=== PATIENT | male | born 1965 | race Two or more races ===

== ENCOUNTER 2025-08-08 08:12 | Inpatient (IN) | payer OTHER, SELFPAY ==
[2025-08-06] VITALS (9 sets, daily range): BP systolic 156–187; BP diastolic 84–100; BMI 23.8
[2025-08-06 17:03] LABS: Hematocrit 38.4 % (39.0-52.0); Hemoglobin 12.7 g/dL (13.0-18.0); Mean Corp Hgb Conc. 33.1 g/dL (33.0-37.0); Mean Corpuscular Volume 83.5 fL (80.0-94.0); Nucleated Red Blood Cells % 0 % (-); Platelet Count 234 10^3/uL (130-400); Red Cell Dist. Width 12.9 % (11.5-14.5)
--- NOTE | 2025-08-06 17:13 | ED.GENMED ---
History of Present Illness
<Farrah Frost MD, Resident - Last Filed: 08/06/25 23:06>
General
Chief Complaint: Chest Pain
Source: patient
Exam Limitations: none
Time Seen by Provider: 08/06/25 16:55
Nursing documentation reviewed up to this point in time: agreed with
History of Present Illness
History of Present Illness:
59yo M with hx of HLD, DM, HTN who presents from urgent care with subacute worsening of exertional chest pain.
Pt lives in [place], [place] and was here visiting his sister. He recently moved to the [place], spoke via [employer]. Pt reports that for the last 1 month, has been having discomfort in his upper chest whenever he walks. This happens with both
physical exertion and walking across short flat distances like parking lot. The discomfort resolves when he is at rest. Today, he felt that the discomfort was worse than usual while walking, around 4-5/10. States that it does not radiate to L arm,
is not accompanied by diaphoresis or n/v. Denies any SOB. Pt went to urgent care, where he was given aspirin and EKG was performed; transferred to ED.
The pt denies any prior cardiac hx, no prior surgeries. States that he has a PCP in [place] who has been rx medications for DM, HLD, HTN, but he is unable to report what any of the medications are. States that the list of his meds is left in his
clothes at the urgent care center.
Past History
<Farrah Frost MD, Resident - Last Filed: 08/06/25 23:06>
Past History
ED Past Medical History: HTN, Hypercholesterolemia and NIDDM
ED Past Surgical History: None
Patient has exhibited threatening behavior?: No
Social History
Tobacco: Non-smoker
Alcohol: None
Drug: None
Family History
Family History: Unable to obtain
Review of Systems
<Farrah Frost MD, Resident - Last Filed: 08/06/25 23:06>
Review of Systems
Allergies reviewed?: Yes
All Other Systems: ROS reviewed and negative except as documented in HPI and ROS
Constitutional: Reports no symptoms
EENT: Reports no symptoms
Respiratory: Reports no symptoms
Cardiac: Reports chest pain
ABD/GI: Reports no symptoms
: Reports no symptoms
Musculoskeletal: Reports no symptoms
Skin: Reports no symptoms
Neurological: Reports no symptoms
Psychiatric: Reports no symptoms
Phy Exam
<Farrah Frost MD, Resident - Last Filed: 08/06/25 23:06>
General Physical Exam
General Presentation: well appearing
General age: appears stated age
General Skin: warm and dry
General Habitus: normal
General Mental: alert
Cardiovascular Exam
Cardiovascular Exam: regular rate/rhythm, no edema and normal peripheral pulses
Heart Sounds: normal
Pulmonary Exam
Pulmonary Exam: lungs clear and no respiratory distress
Gastrointestinal Exam
Gastrointestinal Exam: non tender, soft and non distended
Neurological Exam
Neurological Exam: alert, no motor deficits and speech normal
Musculoskeletal Exam
Musculoskeletal Exam: full ROM and no edema
Skin Exam
Skin Exam: normal color
Psychiatric Exam
Psychiatric Exam: normal mood/affect
Scores
<Farrah Frost MD, Resident - Last Filed: 08/06/25 23:06>
Heart Score for Chest Pain Patients
STEMI patient?: No
History: Slightly or Non-Suspicious
ECG: Nonspecific Repolarization (T wave inversions)
Age: >45 - <65 years
Risk Factors: >/= 3 Risk Factors or History of CAD (DM, HTN, HLD )
Troponin: </= Normal Limit
Heart Score for Chest Pain Patients: 4
Heart Score Risk: 20.3% MACE over next 6 weeks
Course
<Farrah Frost MD, Resident - Last Filed: 08/06/25 23:06>
Orders/Labs/Results
Orders:
Orders
08/06/25 Breakfast
1800 calorie (15 carb) Diabetic
At Your Request: Full Participation
Does patient need a safe tray?: Yes
08/06/25 16:50
EKG [Electrocardiogram (*1)] Urgent
Reason for Study: Chest Pain
08/06/25 16:51
EKG- Treatment ONCE
08/06/25 16:52
Complete Blood Count/With Diff Urgent
Comprehensive Metabolic Panel Urgent
PTT Urgent
Prothrombin Time Urgent
Troponin I Urgent
08/06/25 18:48
Admit/Transfer Patient As Directed
Co-Sign Provider:
Level of Care: Observation services
Assign to:: Telemetry
Physician / Group: kong
Diagnosis: chest pain
Reason for Telemetry: Chest Pain syndromes
Date to Stop Telemetry: 08/08/25
Time to Stop Telemetry: 11:00
PRN Pain Medication Management As Directed
May give lesser potent ordered pain med per pt: Yes
preference::
Protocol:: Medication orders for pain may be administered in a
manner that supports deferring to patient preference
when the pt is:
- Requesting an ordered lesser potent pain medication.
Least to most potent pain medications are defined
as: acetaminophen < NSAID < tramadol < opioids
(morphine, oxycodone, hydromorphone).
- Requesting a lesser dose of the same medication IF
ORDERED.
- Requesting a less intrusive route of administration
if both routes are prescribed by the provider (PO <
IV).
08/06/25 18:49
Code Status As Directed
Resuscitation Status: Full Code
08/06/25 20:55
Electrocardiogram (*1) Q3H
Reason for Study: Chest Pain
Comment: at admission and Q3H for total of 3, to be done with each troponin
Dextrose 50%-Water [Dextrose 50% Syringe] 12.5 grams IV [id number] PRN
Glucagon [GlucaGen] 1 mg IM PRN PRN
08/06/25 20:55
CARDIOLOGY CONSULT Routine
Consulting Provider: Paddy Victor
Was physician already notified: Yes
Activity As Directed
Activity Level: As Tolerated
Bedside Glucose Monitoring As Directed
Frequency: AC&HS
Additional Instructions:: Change to q6h if pt on TPN, tube feeding or not eating
INT (Intravenous Needle Therapy) As Directed
Comment: maintain peripheral IV access
Intake/ Output As Directed
Frequency: Per unit guidelines
Vital Signs As Directed
Frequency: q4h
Weight As Directed
Frequency: Daily
DX Deep Vein Thrombosis Video Routine
08/06/25 21:11
Glycohemoglobin (HgbA1c) Routine
Troponin I Q3H
Comment: at admit & Q3H for 3 total including ED draws, obtain ECG with each level
08/06/25 22:00
Atorvastatin [Lipitor] 40 mg PO HS
08/06/25 23:55
Electrocardiogram (*1) Q3H
Reason for Study: Chest Pain
Comment: at admission and Q3H for total of 3, to be done with each troponin
Troponin I Q3H
Comment: at admit & Q3H for 3 total including ED draws, obtain ECG with each level
08/07/25 02:55
Electrocardiogram (*1) Q3H
Reason for Study: Chest Pain
Comment: at admission and Q3H for total of 3, to be done with each troponin
Troponin I Q3H
Comment: at admit & Q3H for 3 total including ED draws, obtain ECG with each level
08/07/25 Breakfast
NPO
Allow oral meds: No
Allow clear liquids: No
Comment: NPO after midnight
Basic Metabolic Panel IN AM
Cardiovascular Evaluation IN AM
Complete Blood Count/With Diff IN AM
08/07/25 07:30
Insulin Aspart Corrective Low [Novolog Flexpen-Low Resistance] See Protocol SC AC
08/07/25 08:00
Aspirin Chewable [Low Strength Aspirin] 81 mg PO DAILY
Pantoprazole [Protonix] 40 mg PO DAILY
08/07/25 18:00
Enoxaparin Sodium [Lovenox] 40 mg SC QPM
08/08/25 11:00
DC Protocol for Telemetry ONCE
Abnormal Lab Results
08/06/25
16:52
RBC 4.60 L 10^6/uL
(4.70-6.10)
Hgb 12.7 L g/dL
(13.0-18.0)
Hct 38.4 L %
(39.0-52.0)
MPV 10.8 H fL
(7.4-10.4)
Absolute Monos (auto) 0.9 H 10^3/uL
(0.1-0.6)
Monocytes % 10.2 H %
(1.7-9.3)
Carbon Dioxide 32 H mmol/L
(22-30)
Glucose 194 H mg/dl
(70-99)
08/06/25 16:52
08/06/25 16:52
Vital Signs
Initial and Last Documented VS:
Initial Vital Signs
Pulse Resp BP Pulse Ox
85 20 169/98 99
08/06/25 16:53 08/06/25 16:53 08/06/25 16:53 08/06/25 16:53
Last Documented Vital Signs
Temp Pulse Resp BP Pulse Ox
98.1 F 66 18 156/89 99
08/06/25 23:03 08/06/25 23:03 08/06/25 23:03 08/06/25 23:03 08/06/25 23:03
<Naida Murdock MD - Last Filed: 08/06/25 18:07>
Orders/Labs/Results
Orders:
Orders
08/06/25 Breakfast
1800 calorie (15 carb) Diabetic
At Your Request: Full Participation
Does patient need a safe tray?: Yes
08/06/25 16:50
EKG [Electrocardiogram (*1)] Urgent
Reason for Study: Chest Pain
08/06/25 16:51
EKG- Treatment ONCE
08/06/25 16:52
Complete Blood Count/With Diff Urgent
Comprehensive Metabolic Panel Urgent
PTT Urgent
Prothrombin Time Urgent
Troponin I Urgent
08/06/25 18:48
Admit/Transfer Patient As Directed
Co-Sign Provider:
Level of Care: Observation services
Assign to:: Telemetry
Physician / Group: kong
Diagnosis: chest pain
Reason for Telemetry: Chest Pain syndromes
Date to Stop Telemetry: 08/08/25
Time to Stop Telemetry: 11:00
PRN Pain Medication Management As Directed
May give lesser potent ordered pain med per pt: Yes
preference::
Protocol:: Medication orders for pain may be administered in a
manner that supports deferring to patient preference
when the pt is:
- Requesting an ordered lesser potent pain medication.
Least to most potent pain medications are defined
as: acetaminophen < NSAID < tramadol < opioids
(morphine, oxycodone, hydromorphone).
- Requesting a lesser dose of the same medication IF
ORDERED.
- Requesting a less intrusive route of administration
if both routes are prescribed by the provider (PO <
IV).
11/18/25 18:49
Code Status As Directed
Resuscitation Status: Full Code
08/06/25 20:55
Electrocardiogram (*1) Q3H
Reason for Study: Chest Pain
Comment: at admission and Q3H for total of 3, to be done with each troponin
Dextrose 50%-Water [Dextrose 50% Syringe] 12.5 grams IV [id number] PRN
Glucagon [GlucaGen] 1 mg IM PRN PRN
08/06/25 20:55
CARDIOLOGY CONSULT Routine
Consulting Provider: Paddy Victor
Was physician already notified: Yes
Activity As Directed
Activity Level: As Tolerated
Bedside Glucose Monitoring As Directed
Frequency: AC&HS
Additional Instructions:: Change to q6h if pt on TPN, tube feeding or not eating
INT (Intravenous Needle Therapy) As Directed
Comment: maintain peripheral IV access
Intake/ Output As Directed
Frequency: Per unit guidelines
Vital Signs As Directed
Frequency: q4h
Weight As Directed
Frequency: Daily
DX Deep Vein Thrombosis Video Routine
08/06/25 21:11
Glycohemoglobin (HgbA1c) Routine
Troponin I Q3H
Comment: at admit & Q3H for 3 total including ED draws, obtain ECG with each level
08/06/25 22:00
Atorvastatin [Lipitor] 40 mg PO HS
08/06/25 23:55
Electrocardiogram (*1) Q3H
Reason for Study: Chest Pain
Comment: at admission and Q3H for total of 3, to be done with each troponin
Troponin I Q3H
Comment: at admit & Q3H for 3 total including ED draws, obtain ECG with each level
08/07/25 02:55
Electrocardiogram (*1) Q3H
Reason for Study: Chest Pain
Comment: at admission and Q3H for total of 3, to be done with each troponin
Troponin I Q3H
Comment: at admit & Q3H for 3 total including ED draws, obtain ECG with each level
08/07/25 Breakfast
NPO
Allow oral meds: No
Allow clear liquids: No
Comment: NPO after midnight
Basic Metabolic Panel IN AM
Cardiovascular Evaluation IN AM
Complete Blood Count/With Diff IN AM
08/07/25 07:30
Insulin Aspart Corrective Low [Novolog Flexpen-Low Resistance] See Protocol SC AC
08/07/25 08:00
Aspirin Chewable [Low Strength Aspirin] 81 mg PO DAILY
Pantoprazole [Protonix] 40 mg PO DAILY
08/07/25 18:00
Enoxaparin Sodium [Lovenox] 40 mg SC QPM
08/08/25 11:00
DC Protocol for Telemetry ONCE
Abnormal Lab Results
08/06/25
16:52
RBC 4.60 L 10^6/uL
(4.70-6.10)
Hgb 12.7 L g/dL
(13.0-18.0)
Hct 38.4 L %
(39.0-52.0)
MPV 10.8 H fL
(7.4-10.4)
Absolute Monos (auto) 0.9 H 10^3/uL
(0.1-0.6)
Monocytes % 10.2 H %
(1.7-9.3)
Carbon Dioxide 32 H mmol/L
(22-30)
Glucose 194 H mg/dl
(70-99)
08/06/25 16:52
08/06/25 16:52
Vital Signs
Initial and Last Documented VS:
Initial Vital Signs
Pulse Resp BP Pulse Ox
85 20 169/98 99
08/06/25 16:53 08/06/25 16:53 08/06/25 16:53 08/06/25 16:53
Last Documented Vital Signs
Temp Pulse Resp BP Pulse Ox
98.1 F 66 18 156/89 99
08/06/25 23:03 08/06/25 23:03 08/06/25 23:03 08/06/25 23:03 08/06/25 23:03
<Farrah Frost MD, Resident - Last Filed: 08/06/25 23:06>
MDM/Problems Addressed
Differential Diagnosis Includes:
ACS (stable angina given CP with exertion only, resolves at rest vs. unstable angina given worsening degree of discomfort & T wave inversions on EKG)
MDM/Problems Addressed:
Plan:
- EKG
- Troponins
- CBC/CMP
- Nitro for sx relief
- Consult cards
Chronic conditions affecting care: DM and HTN
Acute Exacerbation and/or Progression of Chronic Illness:
Pt with cardiovascular dz (underlying HTN, elevated at admission 180/97), likely contributing to ASCVD risk picture in addition to his HLD & DM
<Farrah Frost MD, Resident - Last Filed: 08/06/25 23:06>
*Pulse Oximetry
SaO2: 99
Oxygen Mode of Delivery: Room air
Patient hypoxic: no
*EKG
Interpreted by ED Provider?: Yes
EKG Intrepretation Date: 08/06/25
Interpretation: abnormal
Comparison EKG: no comparison EKG present
Rate: normal
Rhythm: sinus
[place]: normal axis
Interval: normal interval
QRS Pattern: normal QRS
Ischemia: T-wave inversion
*Critical Care Note
Total Time (30-74mins, 75-104mins- exclusive of procedures): Not Applicable
Data Reviewed
Review of Other/Old Records Reveals: Labs
Source: patient
<Farrah Frost MD, Resident - Last Filed: 08/06/25 23:06>
Update Note
Update Note:
Troponin wnl but mildly elevated 0.019, c/f ongoing subclinical ischemic events
Given worsening level of chest discomfort w exertion over 1mo, ASCVD risk factors/comorbidities, and EKG with T-wave inversions, reasonable to admit for further w/u
Cards consulted for eval
Cards planning for PCI/cardiac cath tomorrow am, NPO after midnight
Discussed w pt & family, will admit to floor
ED Attending Note
<Farrah Frost MD, Resident - Last Filed: 08/06/25 23:06>
-
Portions of this chart may have been created with voice recognition software.� Occasional wrong word or��sound alike� substitutions may have occurred due to the inherent limitations of voice recognition software.
<Naida Murdock MD - Last Filed: 08/06/25 18:07>
ED Attending Note
Patient seen and examined by attending physician: Yes
I performed a history and physical exam of patient and discussed management with resident, I reviewed resident's note and agree with documented findings and plan of care.: Yes
ED Attending Note:
Patient appears comfortable. Lungs are clear. Patient states 0 out of 10 pain currently
Discharge Plan
Departure
Patient Disposition: Admit
Date of Disposition: 08/06/25
Time of Disposition: 18:20
Admit to: Med/Surg
Admit to doctor: Kong
Presentation/result/management discussed w/ accepting MD/DO: Hospitalist
Patient with high blood pressure during this ER visit?: Yes
Condition: Good
Covid-19: Not Applicable
Discharge Problem:
ACS (acute coronary syndrome)
Interventions
Interventions:
*Risk Screen - Suicide Last Done: 08/06/25 16:55
*General Assessment Last Done: 08/06/25 16:55
*Neglect/Abuse Screening Last Done: 08/06/25 16:55
*ED- Fall Risk Assessment Last Done: 08/06/25 16:55
*ED COVID-19 Vaccine History Last Done: 08/06/25 16:55
*ED Influenza Vaccine History Last Done: 08/06/25 16:55
*Nursing Disposition Last Done: 08/06/25 20:42
ED- Cardiac Assessment Last Done: 08/06/25 19:19
Discharge Date and Time
Discharge Date/Time: 08/06/25 20:43
[2025-08-06 17:15] LABS: ALT (SGPT) 23 U/L (0-50); AST (SGOT) 21 U/L (17-59); Albumin 4.4 g/dl (3.5-5.0); Alkaline Phosphatase 68 U/L (38-126); Blood Urea Nitrogen 10 mg/dl (9-20); Calcium 9.1 mg/dl (8.4-10.2); Carbon Dioxide 32 mmol/L (22-30); Chloride 98 mmol/L (98-107); Estimated Creatinine Clearance 90 ml/min; Glucose 194 mg/dl (70-99); Potassium 3.9 mmol/L (3.5-5.1); Sodium 137 mmol/L (135-145); Total Protein 7.3 g/dl (6.3-8.2); eGFR > 60.00
[2025-08-06 17:17] LABS: APTT 29.5 Sec (23.4-35.0); INR 1.00; PT 13.5 Sec (11.4-14.6)
[2025-08-06 17:26] LABS: Troponin I 0.019 ng/ml
--- NOTE | 2025-08-06 18:35 | HPS.HSE ---
Addendum entered and electronically signed by Diana German MD 08/06/25 20:04:
This is an addendum to H&P written by Rosamaria Bernal on 08/06/2025. �Patient seen and examined independently with ENERGY AUDITOR.
59-year-old Faroese speaking male past medical history of hyperlipidemia, diabetes, hypertension presenting with exertional chest discomfort in the neck.
Patient lives in [facility] and was visiting his sister. �He recently moved to the . �For the past month he has been having discomfort in his upper chest whenever he walks. �This occurs with physical exertion and walking across short flat
distances like parking lot. �Discomfort relieved with rest. �Today discomfort is worse than usual walking rated 5 out of 10. �Pain does not radiate to his left arm. �No sweating or nausea or vomiting. �No shortness of breath. �He went to urgent care
and was given aspirin EKG was performed.
EKG showed normal sinus rhythm, T wave inversions in V1-V4. �Troponin of 0.019.
Patient with unstable angina/possible NSTEMI. �No chest pain currently. �Trend troponins, continue aspirin and statin. �Check A1c and lipid panel. �Cardiology consulted.
Original Note:
Family Physician
-
Family Physician:
Chief Complaint
-
burning in the throat
History of Present Illness
59yo M with hx of HLD, DM, HTN presented to us with upper chest, throat burning for past 1 week. He feels the symptoms only with exertion and relieved with rest. Patient denied any short of breath. Patient stated the pain is nonradiating.
Patient denied any headache, dizziness or syncope. Patient denied any fever, chills, cough, congestion. Patient denied any abdominal pain, nausea, vomiting or diarrhea. Patient denied dysuria hematuria. Patient is from [facility]. He is
visiting his family here. Pt went to urgent care, where he was given aspirin and EKG was performed; transferred to ED.
Concern for acute coronary syndrome. Admitting for further manage
Medical History
Past Medical History
Past Medical History: Reports Other
Additional Past Medical History:
Hypertension, hyperlipidemia, type 2 diabetes
Past Surgical History: Reports None
Social History
Tobacco: Non-smoker
Alcohol: None
Drug: None
Family History
Family History: Not pertinent
Allergies / Home Medications
Allergies reflects when Allergies were last updated in [facility].
Home Medications with original date entered in [facility]
Allergy/Medication List:
Medications on admission are unable to be verified or confirmed at this time.
Review of Systems
-
Constitutional: Reports No Symptoms
EENT: Reports No Symptoms
Respiratory: Reports No Symptoms
Cardiac: Reports Chest Pain
Abdomen/GI: Reports No Symptoms
: Reports No Symptoms
Musculoskeletal: Reports No Symptoms
Skin: Reports No Symptoms
Neurological: Reports No Symptoms
Endocrine: Reports No Symptoms
Hematologic/Lymphatic: Reports No Symptoms
Psych: Reports No Symptoms
Physical Exam
Vital Signs
Vital Signs
Temp Pulse Resp BP Pulse Ox
98.6 F 82 18 181/100 99
08/06/25 16:57 08/06/25 18:15 08/06/25 18:15 08/06/25 18:00 08/06/25 17:22
Physical Exam
General: Well Developed, Well Nourished and No Apparent Distress
HEENT: NormoCephalic, Moist mucous membranes and Atraumatic
Respiratory: Clear
Cardiac: S1/S2 and Regular Rhythm; No Murmur or Rub
GI: Soft, Non Tender, Non Distended and Normal Bowel Sounds; No Organomegaly
Rectal: Deferred by Provider
Musculoskeletal: No Clubbing, No Cyanosis and No Edema
Skin: No Rash
Neuro: AO x 3 and Nonfocal/grossly intact
Psych: Calm
Laboratory Results
-
08/06/25 16:52
08/06/25 16:52
Laboratory Results
PT 13.5 Sec (11.4-14.6) 08/06/25 16:52
INR 1.00 08/06/25 16:52
APTT 29.5 Sec (23.4-35.0) 08/06/25 16:52
Total Bilirubin 0.3 mg/dl (0.2-1.3) 08/06/25 16:52
AST 21 U/L (17-59) 08/06/25 16:52
ALT 23 U/L (0-50) 08/06/25 16:52
Alkaline Phosphatase 68 U/L (38-126) 08/06/25 16:52
Troponin I 0.019 ng/ml 08/06/25 16:52
Data Reviewed
-
Lab Data: Labs Reviewed by me
Impression/Plan
-
# Exertional chest discomfort concern for ACS
- EKG normal sinus rhythm, ST and T wave abnormality consider anterior ischemia
- Aspirin continue
- Continue to trend Trope
- Plan for cath tomorrow
- Will keep patient n.p.o. after midnight
# Hypertension
- Blood pressure elevated in ER
-ctm
# Type 2 diabetes
- Sliding scale
-hold glimepiride and metformin
# Hyperlipidemia
- Statin continued
# DVT prophylaxis
- Lovenox subcu
# CODE STATUS
- Full code
[2025-08-06 21:25] LABS: Glucose - Point of Care 132 mg/dl (70-99)
--- NOTE | 2025-08-06 21:32 | PTCARENOTE ---
received pt from ED at 2100. pt ambulated from stretcher to bed. pt offers no current complaints. pt made comfortable in bed. call camejo within reach. plan of care ongoing.
[2025-08-06 21:46] LABS: Troponin I < 0.012 ng/ml
[2025-08-06] MEDS: LIPITOR 40 MG PO (22:09)
[2025-08-06 23:59] LABS: Glucose - Point of Care 116 mg/dl (70-99)
[2025-08-07] VITALS (11 sets, daily range): BP systolic 124–185; BP diastolic 82–107; BMI 23.6
[2025-08-07 00:32] LABS: Troponin I < 0.012 ng/ml
--- NOTE | 2025-08-07 03:00 | DOWNTIME ---
There was a [facility] [employer] Downtime on 08/07/2025 from 0100 to 08/07/2025 at 0255. Downtime documentation of patient's care, including medication administrations, has been reconciled in the electronic record per guidelines. Refer to the
patient's paper chart under the miscellaneous tab to see printed paper medication records and downtime forms.
[2025-08-07 06:01] LABS: Glucose - Point of Care 113 mg/dl (70-99)
--- NOTE | 2025-08-07 07:26 | W.PN.HOSP.TC ---
Today's Communication/Plan
-
Cardiac cath today
Assessment / Plan
Assessment / Plan
Physical Exam
General: Well Developed, Well Nourished and No Apparent Distress
HEENT: Normocephalic, Moist mucous membranes and Atraumatic
Respiratory: Clear
Cardiac: S1/S2 and Regular Rhythm; No Murmur or Rub
GI: Soft, Non Tender, Non Distended and Normal Bowel Sounds
Musculoskeletal: No Cyanosis and No Edema
Skin: Warm. Dry.
Neuro: AO x 3 and Nonfocal/grossly intact
Psych: Calm
Assessment/Plan
KAMLESH
59-year-old Sami speaking male past medical history of hyperlipidemia, diabetes mellitus, hypertension presenting with exertional burning sensation in the neck. Patient lives in [facility] and was visiting his sister. He recently moved to
the . For the past month he has been having discomfort (burning sensation) in his upper chest whenever he walks. This occurs with physical exertion and walking across short flat distances like parking lot. Discomfort relieved with rest. Today
discomfort is worse than usual walking rated 5 out of 10. Pain does not radiate to his left arm. No sweating or nausea or vomiting. No shortness of breath and no actual chest pain. He went to urgent care and was given aspirin EKG was performed.
EKG showed normal sinus rhythm, T wave inversions in V1-V4. Troponin of 0.019. Patient with unstable angina/possible NSTEMI. No chest pain currently.
RASHEED
59yo M with hx of HLD, DM, HTN presented to us with upper chest, throat burning for past 1 week. He feels the symptoms only with exertion and relieved with rest. Patient denied any short of breath. Patient stated the pain is nonradiating.
Patient denied any headache, dizziness or syncope. Patient denied any fever, chills, cough, congestion. Patient denied any abdominal pain, nausea, vomiting or diarrhea. Patient denied dysuria hematuria. Patient is from [facility]. He is
visiting his family here. Pt went to urgent care, where he was given aspirin and EKG was performed; transferred to ED.
Concern for acute coronary syndrome. Admitting for further manage
# Exertional chest discomfort concern for ACS
- EKG normal sinus rhythm, ST and T wave abnormality consider anteriorseptal ischemia
- Aspirin continue
- Troponins negative
- Plan for cath on 08/07/25
- NPO for cath
# Hypertension
- Blood pressure elevated in ER
- New medications: Valsartan, HCTZ and Coreg
# Type 2 diabetes mellitus
- Sliding scale
-hold glimepiride and metformin
# Hyperlipidemia
- Statin continued
# DVT prophylaxis
- Lovenox subcu
# CODE STATUS
- Full code
Anticipated Discharge: 24 - 48 hours
Subjective/Interval History
-
Date of Service: August 07, 2025
Patient was seen and examined. He denied any chest pain or burning sensation at rest. No new symptoms or complaints since coming in.
Objective Data
-
Labs:
Laboratory Results
08/07/25
07:04
WBC Pending
Hgb Pending
Hct Pending
Plt Count Pending
Sodium Pending
Potassium Pending
Chloride Pending
Carbon Dioxide Pending
BUN Pending
Creatinine Pending
Glucose Pending
Calcium Pending
Vital Signs:
Vital Signs
Temp Pulse Resp BP Pulse Ox
97.8 F 70 18 151/86 99
08/07/25 03:46 08/07/25 03:46 08/07/25 03:46 08/07/25 03:46 08/07/25 03:46
I&O
08/06/25 08/07/25 08/08/25
06:59 06:59 06:59
Intake Total 240 / 240
Balance 240 / 240
[2025-08-07 07:35] LABS: Hematocrit 40.0 % (39.0-52.0); Hemoglobin 12.7 g/dL (13.0-18.0); Mean Corp Hgb Conc. 31.8 g/dL (33.0-37.0); Mean Corpuscular Volume 86.2 fL (80.0-94.0); Nucleated Red Blood Cells % 0 % (-); Platelet Count 234 10^3/uL (130-400); Red Cell Dist. Width 12.9 % (11.5-14.5)
[2025-08-07] MEDS: LOW STRENGTH ASPIRIN 81 MG PO (07:37)
[2025-08-07] MEDS: PROTONIX 40 MG PO (07:38)
[2025-08-07 08:19] LABS: Blood Urea Nitrogen 10 mg/dl (9-20); Calcium 9.1 mg/dl (8.4-10.2); Carbon Dioxide 30 mmol/L (22-30); Chloride 103 mmol/L (98-107); Estimated Creatinine Clearance 79 ml/min; Glucose 133 mg/dl (70-99); HDL Cholesterol 43 mg/dl; LDL Cholesterol, Calculated 104 mg/dl; Potassium 4.2 mmol/L (3.5-5.1); Sodium 139 mmol/L (135-145); Very Low Density Lipoprotein 32 mg/dl (0-30); eGFR > 60.00
[2025-08-07 08:46] LABS: Glycohemoglobin (HgbA1c) 7.2 % (4.0-5.9)
--- NOTE | 2025-08-07 08:50 | CON.CAR ---
Addendum entered and electronically signed by Will Tan MD 08/07/25 11:35:
I saw and evaluated the patient, and I provided the substantive portion of the medical decision making.
I reviewed and agree with the note by GIOVANA Ya and it accurately reflects our care.
I personally performed the medical decision making of the this encounter and my assessment and plan is below:
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 The last month he has noticed exertional burning in his chest and neck
relieved with rest. It recently happened with as little as walking around [facility]. This prompted him to seek care. He is visiting from [facility]. He reports he is compliant with his medications. No history of GI bleeding or GI ulcer.
On exam, he has a regular rate and rhythm with a normal S1-S2 no murmur rubs gallops were appreciated lungs were clear to auscultation bilaterally abdomen soft nontender nondistended without hepatosplenomegaly normal distal pulses. No lower
extremity SANDY. Alert and oriented x 3 in no apparent distress.
Troponin initially 0.019. This is now normal.
EKG normal sinus rhythm with diffuse nonspecific ST-T wave inversions anteriorly.
Assessment:
Findings concerning for progressive angina: Typical story, happening with very little exertion, and multiple risk factors. Will proceed with cardiac catheterization. Will add beta-saúl. Continue statin and ARB. Monitor blood pressure
response. Check lipid panel. Check echo.
Hypertension: Elevated, adding beta-saúl continue ARB and hydrochlorothiazide. Adjust as needed.
Hyperlipidemia: Intensify his statin, check lipid panel.
Will follow.
Original Note:
Consultation
Consultation Request
Date/Time Consultation Requested: 08/06/252054
Date/Time Consultation Performed: 08/07/2545
Requesting Provider: Rosamaria Bernal
Performing Provider: Zina AKHTAR for Dr. Tan
Reason for Consultation: Chest pain
Medical History
-
Chief Complaint: chest discomfort
History of Present Illness:
59 y/o Uzbek speaking male with HTN, HLD, and DM2 who is here for evaluation of chest discomfort. It is a burning in his upper neck and chest only with exertion and not with rest. There is no SOB. This has been going on for about 1 month. He went
to urgent care, who recommended he come to the ER. EKG here shows anterior ST/T wave changes. First trop was slightly elevated at 0.019. He is CP free at the time of my assessment. There was an issue with the steamer gum candy IPAD, so it was unable to be
used, but we were able to communicate effectively with the translation from his nephew. Then, I confirmed all of this with the steamer gum candy phone with patient as soon as it became available. Therefore, we were able to communicate effectively.
Past Medical History
Past Medical History: HTN, Hypercholesterolemia and NIDDM
Social History
Tobacco: Non-Smoker
Alcohol: None
Drug: None
Family History
Family History: Reviewed & Not Pertinent (denies)
Allergies / Home Medications
Allergy/AdvReac Type Severity Reaction Status Date / Time
No Known Allergies Allergy Verified 08/06/25 18:47
�Medication �Instructions �Recorded �Confirmed �Type
atorvastatin 10 mg tablet 10 mg PO HS High Cholesterol 08/06/25 08/06/25 History
glimepiride 2 mg tablet 2 mg PO DAILY Diabetes 08/06/25 08/06/25 History
metformin 1,000 mg tablet 1,000 mg PO DAILY Diabetes 08/06/25 08/06/25 History
Arbiten Plus- Valsartan 160 mg /HCTZ 12.5 mg PO daily
Review of Systems
-
History Source: Patient, Family (nephew translates) and Other (and chart)
Cardiac: Chest Pain
Physical Exam
Vital Signs
Temp Pulse Resp BP Pulse Ox
98.4 F 74 16 161/97 99
08/07/25 07:34 08/07/25 07:34 08/07/25 07:34 08/07/25 07:34 08/07/25 07:34
Lab Results
08/07/25 07:04
08/07/25 07:04
Troponin I Cancelled 08/07/25 02:55
Physical Exam
General: Well Developed, Well Nourished and No Apparent Distress
HEENT: Normocephalic and Anicteric
Respiratory: Clear and Non Labored Respirations
Cardiac: Regular Rhythm
Musculoskeletal: No Edema
Skin: Warm and Dry
Neuro: Awake, Alert and Oriented
Psych: Calm
Impression / Plan
-
Chest discomfort:
-concerning for angina/coronary artery disease as cause
-CP free at present
-EKG with ST/T changes anteriorly, trop 0.019, then normal
-will give ASA 243 mg now, because I cannot confirm he got full dose at urgent care, then continue 81 mg daily
-plan for cardiac catheterization
-statin dose increased
-obtain echo
-add BB
HTN:
-severely elevated on arrival
-add back his home medication- nephew showed me a picture of the pill packet which is called Arbiten Plus- and is valsartan 160/HCTZ 12.5 mg. He takes this once daily.
-monitor with resumption of home medication and addition of BB
HLD:
-LDL 104
-statin dosing increased to high intensity
DM2:
-hgbA1C 7.2
-OP meds include metformin and glimepiride
-on SSI here
-management per primary team
-hold metformin for cath
Data Reviewed
-
EKG: Tracing Personally Visualized and interpreted (SR at 67 BPM, ST/T abnormality (anterior))
Medical Tests (Nuc Med, Echo etc): Other (echo ordered )
Labs: Labs Reviewed by me
[2025-08-07] MEDS: ORETIC 12.5 MG PO (09:53)
[2025-08-07] MEDS: LOW STRENGTH ASPIRIN 243 MG PO (09:53)
[2025-08-07] MEDS: DIOVAN 160 MG PO (09:53)
[2025-08-07] MEDS: COREG 3.125 MG PO ×2 (10:28→21:19)
[2025-08-07 12:00] LABS: Glucose - Point of Care 112 mg/dl (70-99)
--- NOTE | 2025-08-07 16:33 | CM ---
Alert awake oriented patient who lives with his Tiffany in a 2 story home with 3 step to enter and bed and bathroom first floor. He is independent in driving and in all activities of daily living.He was visiting nephew locally and became ill
needing ED.Offered VN he declined need.Family interpreted Pt speaks [place].
Pt VN hx / No SNF history
Pharmacy He can use [facility] local
PCP DR Le
PLAN Home Declined VN
[2025-08-07 17:52] LABS: Glucose - Point of Care 101 mg/dl (70-99)
--- NOTE | 2025-08-07 20:02 | ITS.CL.ANGIO ---
Ranch Supervisor - Angioplasty
Angioplasty
Procedure Report:
CARDIAC CATHETERIZATION REPORT
Date of Procedure: 08/07/2025
Referring: Melly Tan M.D.
INDICATION: Unstable angina.
PROCEDURE:
1. Left heart catheterization.
2. Coronary angiography.
3. Successful PTCA of the second diagonal.
4. Successful IVUS guided PCI of the proximal LAD.
A total of 69 minutes of procedural/moderate sedation was utilized. An independent medical records director was present to assist with and help manage the patient's level of consciousness and physiologic status.
ACCESS:
1. 6 Omani right radial artery using a modified Seldinger technique.
CATHETERS:
1. 5 Omani JR4.
2. 5 Omani JL 3.5.
3. 6 Omani JL 3.5 guiding catheter.
HEMODYNAMIC DATA
Weight (kg): 60.3
AO (s/d/x, mmHg): 148/86/114
LV (s/x mmHg): 154/9
AV gradient (x, mmHg): 5.9
LEFT VENTRICULOGRAPHY: Not performed.
CORONARY ANGIOGRAPHY
Dominance: Right.
Left Main: Congenitally absent.
LAD: Normal size vessel that arises directly from the aorta with a funnel like opening, giving rise to 3 diagonals. There is a 90% lesion in the proximal LAD spanning the origin of D1 and D2. D1 is a small, 1 mm vessel with a 90% lesion
in its ostium. D2 is a 1.5 mm vessel that supplies the anterolateral wall. There is 99% lesion within the proximal margin of D2 with KARO I flow.
Ramus: Congenitally absent.
Circumflex: Normal size, nondominant vessel that arises directly from the aorta, giving rise to 1 large obtuse marginal that arises very high off of the circumflex. There are luminal irregularities in both the circumflex and the marginal.
RCA: Large size, dominant vessel with a large posterolateral arcade. The vessel has an aberrant origin in the left coronary cusp that was engaged with the Nguyễn left catheter with applied clockwise torque. There are luminal
irregularities throughout the RCA.
INTERVENTION(S)
1. Successful PTCA of the 99% proximal/mid small second diagonal lesion (1.5 x 12 mm semicompliant balloon, 2.0 x 12 mm semicompliant balloon) with reduction in stenosis to 30%, restoring KARO-3 flow.
2. Successful IVUS guided PCI of the 90% proximal LAD lesion (Medtronic [place] 2.5 x 26 JAN, postdilated with a 2.5 NC balloon throughout and a 3.0 x 8 NC balloon in the proximal margin) with reduction in stenosis to 0%, maintaining KARO-3 flow.
Narrative:
The decision was made to proceed with percutaneous coronary intervention. The diagnostic catheter was removed over a wire and a 6Fr JL 3.5 guiding catheter was advanced to the aortic root and seated in the ostial LAD. Additional heparin was given
and a Power Turn Flex wire was advanced into the distal LAD. A BMW wire was advanced into the second diagonal. The 90% ostial/proximal LAD lesion was predilated with a 2.0 x 12 semi-compliant balloon to 12 thomas. The semi-compliant balloon was
removed. At this time, we turned our attention to the second diagonal. A 1.5 x 12 semicompliant balloon was advanced and the proximal and mid D2 was dilated to 12 thomas. This restored KARO-3 flow. The semicompliant balloon was withdrawn and the
2.0 x 12 semicompliant balloon was advanced over the BMW wire and into the diagonal and the lesion was dilated softly to 8 thomas. The noncompliant balloon was withdrawn. Angiography showed reduction in stenosis with hindu of KARO-3 flow in the
D2. It was also quite apparent that this artery was too small to accommodate a stent and we would be left with a angioplasty result. We then turned our attention back to the LAD. A Medtronic [place] 2.5 x 26 drug-eluting stent was advanced.
Meticulous care was taken while positioning the stent, ensuring that the entire lesion was covered distally as well as covering the proximal, funnel shape of the LAD origin. The stent was deployed at 12 atmospheres. The stent balloon was removed.
A 2.5 x 20 noncompliant balloon was advanced into the stent and the stent was postdilated to 16 atmospheres.
A whisper wire was subsequently advanced into the LAD and then into the second diagonal, demonstrating that the artery was percutaneously accessible if needed. The BMW wire was pulled back from behind the stent struts and withdrawn.
The decision was made to perform intracoronary imaging. An IVUS catheter was advanced through the guiding catheter and into the ostium of the artery. Ring down was performed once the imaging crystal was no longer inside of the guiding catheter. The
IVUS catheter was advanced into the mid LAD. Intravascular ultrasound was performed in a retrograde fashion using a slow pullback. Intracoronary imaging demonstrated good stent apposition throughout the entire stented segment with some area for
increased post dilation in the proximal margin.
The IVUS catheter was withdrawn and a 3.0 x 8 noncompliant balloon was advanced into the proximal LAD. The ostial/proximal LAD stent was postdilated to 15 thomas. The noncompliant balloon was withdrawn.
Angiography was performed in orthogonal views, confirming good stent expansion and an excellent angiographic result. The coronary wire was withdrawn and the guide was disengaged from the artery. The catheter was removed over a standard J-wire.
Closure Device: Vascular band.
Radiation (mGy): 943.07
DAP (cm2.Gy): 49.0041
Fluoroscopy time (minutes): 22.3
CONCLUSIONS
1. 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
circumflex system, a 90% lesion in the origin of the 1 mm D1, and 99% lesion in the proximal margin of D2 with KARO I flow status post successful PTCA (1.5 x 12 semicompliant balloon, 2.0 x 12 semicompliant balloon) with reduction in stenosis to
30%, restoring KARO-3 flow and a 90% ostial/proximal LAD lesion status post successful IVUS guided PCI (Medtronic [place] 2.5 x 26 JAN, postdilated with a 2.5 NC balloon throughout and a 3.0 x 8 NC balloon in the proximal margin) with
reduction in stenosis to 0%, maintaining KARO-3 flow.
2. Normal filling pressures (LVEDP = 9 mmHg at 60.3 kg).
RECOMMENDATIONS:
1. Expectant management after cardiac catheterization via right radial approach.
2. Limited weight bearing on the right wrist for one week.
3. Dual antiplatelet therapy with aspirin and clopidogrel for at least 12 months, followed by aspirin indefinitely.
4. OMT/GDMT as hemodynamics will tolerate.
5. Aggressive secondary prevention with high-dose, high potency statin. Goal LDL <55.
6. Referral to cardiac rehab.
Copy to: Melly Tan M.D.
Jose Leslie DO, FACC, FACP
[2025-08-07] MEDS: LIPITOR 40 MG PO (21:19)
--- NOTE | 2025-08-07 21:50 | PTCARENOTE ---
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 Pt AAOx3, VSS-- NSR on monitor. Right radial band intact w/ 10mL of air. No swelling, ecchymosis, or hematoma present @ this time. Family bedside. Explained expected ambulation time and protocol for working radial
band off. Discussed plan of care. Pt verbalizes understanding. Call camejo within reach.
[2025-08-08 01:40] VITALS: BP 137/86
--- NOTE | 2025-08-08 02:23 | PTCARENOTE ---
Right radial band taken off per protocol. No swelling, ecchymosis, or hematoma present @ this time. Discussed not pushing up with arm. Pt verbalizes understanding. Call camejo within reach.
[2025-08-08 04:30] VITALS: BP 118/76
[2025-08-08 05:08] LABS: Hematocrit 38.9 % (39.0-52.0); Hemoglobin 12.3 g/dL (13.0-18.0); Mean Corp Hgb Conc. 31.6 g/dL (33.0-37.0); Mean Corpuscular Volume 84.2 fL (80.0-94.0); Platelet Count 246 10^3/uL (130-400); Red Cell Dist. Width 12.8 % (11.5-14.5)
[2025-08-08 05:34] LABS: Blood Urea Nitrogen 15 mg/dl (9-20); Calcium 9.0 mg/dl (8.4-10.2); Carbon Dioxide 30 mmol/L (22-30); Chloride 100 mmol/L (98-107); Estimated Creatinine Clearance 90 ml/min; Glucose 167 mg/dl (70-99); Potassium 4.2 mmol/L (3.5-5.1); Sodium 136 mmol/L (135-145); eGFR > 60.00
[2025-08-08 05:45] LABS: Glucose - Point of Care 147 mg/dl (70-99)
[2025-08-08 06:00] VITALS: BMI 23.4
[2025-08-08 07:36] VITALS: BP 142/78
--- NOTE | 2025-08-08 07:56 | W.PN.HOSP.TC ---
Today's Communication/Plan
-
Discharge today
Assessment / Plan
Assessment / Plan
Physical Exam
General: Well Developed, Well Nourished and No Apparent Distress
HEENT: Normocephalic, Moist mucous membranes and Atraumatic
Respiratory: Clear
Cardiac: S1/S2 and Regular Rhythm; No Murmur or Rub
GI: Soft, Non Tender, Non Distended and Normal Bowel Sounds
Musculoskeletal: No Cyanosis and No Edema
Skin: Warm. Dry.
Neuro: AO x 3 and Nonfocal/grossly intact
Psych: Calm
Assessment/Plan
KAMLESH
59-year-old Setswana speaking male with past medical history of hyperlipidemia, diabetes mellitus, hypertension presenting with exertional burning sensation in the neck. Patient lives in [facility] and was visiting his sister. He recently
moved to the . For the past month he has been having discomfort (burning sensation) in his upper chest whenever he walks. This occurs with physical exertion and walking across short flat distances like parking lot. Discomfort relieved with
rest. Today discomfort is worse than usual walking rated 5 out of 10. Pain does not radiate to his left arm. No sweating or nausea or vomiting. No shortness of breath and no actual chest pain. He went to urgent care and was given aspirin EKG
was performed. EKG showed normal sinus rhythm, T wave inversions in V1-V4. Troponin of 0.019. Patient with unstable angina/possible NSTEMI. No chest pain currently.
#Acute Coronary Syndrome status post cardiac catheterization status post PCI to LAD [cath showed 90% ostial/proximal LAD and 99% D2 stenoses and status post PTCA of D2 (too small for PCI) and PCI of the ostial/proximal LAD (Medtronic [place] 2.5 x 26
JAN, post dilated with a 2.5 NCB throughout, 3.0 NCB in the proximal margin)]
- EKG normal sinus rhythm, ST and T wave abnormality consider anteriorseptal ischemia
- Aspirin continue
- Troponins negative
- DAPT with Aspirin and Clopidogrel for at least 12 months, followed by Aspirin indefinitely.
- High dose, high potency statin with Lipitor 40 mg daily
- Continue Coreg
- Patient needs to see outpatient emergency medicine medical director in
#Hypertension
- Blood pressure elevated in ER
- New medications: Valsartan 160 mg daily, HCTZ 12.5 mg daily and Coreg 3.125 mg BID
# Type 2 diabetes mellitus
- Sliding scale
- Continue glimepiride on discharge, monitor for hypoglycemia in case renal impairment develops from contrast induced nephropathy
- Hold metformin since patient just received contrast with the cardiac cath
# Hyperlipidemia
- Statin changed to high-intensity dose
# DVT prophylaxis: Lovenox
# CODE STATUS
- Full code
More than 30 minutes spent in discharge including
Final examination of the patient
Summarizing hospital stay
Instructions for continuing care to all relevant caregivers
Preparation of discharge records, prescriptions, and referral forms
Total time spent (in minutes): 39
Anticipated Discharge: Today
Subjective/Interval History
-
Date of Service: August 08, 2025
Patient was seen and examined. He reported doing well, denied any new symptoms or complaints. He denied any chest pain or shortness of breath.
Objective Data
-
Labs:
Laboratory Results
08/08/25
04:37
WBC 10.5
Hgb 12.3 L
Hct 38.9 L
Plt Count 246
Sodium 136
Potassium 4.2
Chloride 100
Carbon Dioxide 30
BUN 15
Creatinine 0.7
Glucose 167 H
Calcium 9.0
Vital Signs:
Vital Signs
Temp Pulse Resp BP Pulse Ox
98.7 F 83 20 142/78 99
08/08/25 07:36 08/08/25 07:36 08/08/25 07:36 08/08/25 07:36 08/08/25 07:36
I&O
08/07/25 08/08/25 08/09/25
06:59 06:59 06:59
Intake Total 240 / 240
Balance 240 / 240
--- NOTE | 2025-08-08 08:06 | W.PN.CD ---
Today's Communication / Plan
-
DAPT for one year, then aspirin indefinitely.
Atorvastatin increased. Goal LDL < 55.
BP improved with addition of carvedilol.
Referral to cardiac rehab. He lives in [place], [place].
Discharge planning.
Impression / Plan
-
Impression/Plan: 59 y/o Azeri gentleman with HTN, HLD, NIDDM admitted with ACS.
#ACS
-Chronic, progressive with some pain at rest.
-EKG with ST/T changes anteriorly, trop 0.019, then normal.
-Echo shows normal myocardial function, normal valve function.
-Cardiac catheterization revealed 90% ostial/proximal LAD and 99% D2 stenoses.
-S/P PTCA of D2 (too small for PCI) and PCI of the ostial/proximal LAD (Medtronic Anthony 2.5 x 26 JAN, post dilated with a 2.5 NCB throughout, 3.0 NCB in the proximal margin).
-DAPT with aspirin and clopidogrel for at least 12 months, followed by aspirin indefinitely.
-High dose, high potency statin.
-Continue metoprolol.
#HTN:
-Acute on chronic, severely elevated on arrival.
-Blood pressure improved with resumption of anti-hypertensive medications and addition of carvedilol.
-Continue valsartan 160 mg daily, HCTZ 12.5 mg daily and carvedilol 3.125 mg BID.
#HLD:
-Chronic, uncontrolled.
-Total cholesterol = 179, LDL = 104, HDL = 43, Triglycerides = 164.
-Atorvastatin increased to 40 mg daily.
-Goal LDL < 55.
#DM2:
-Chronic, stable.
-HbA1c = 7.2%.
-Resume outpatient anti-hyperglycemics.
-Resume metformin tomorrow.
#Dispo
-IVU status, full code.
-Discharge planning.
Subjective/Interval History:
Cardiac catheterization revealed abnormal anatomy and ostial/proximal LAD stenosis. There was significant disease in the small diagonals as well.
Patient underwent PTCA of the diagonals (too small for PCI) and PCI of the proximal LAD.
No acute events overnight.
DATA:
Cardiac Catheterization/PCI, 08/07/2025:
CONCLUSIONS
1. 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
circumflex system, a 90% lesion in the origin of the 1 mm D1, and 99% lesion in the proximal margin of D2 with KARO I flow status post successful PTCA (1.5 x 12 semicompliant balloon, 2.0 x 12 semicompliant balloon) with reduction in stenosis to
30%, restoring KARO-3 flow and a 90% ostial/proximal LAD lesion status post successful IVUS guided PCI (Medtronic [place] 2.5 x 26 JAN, postdilated with a 2.5 NC balloon throughout and a 3.0 x 8 NC balloon in the proximal margin) with
reduction in stenosis to 0%, maintaining KARO-3 flow.
2. Normal filling pressures (LVEDP = 9 mmHg at 60.3 kg).
Physical Exam
Vital Signs/Labs
Vital Signs
Temp Pulse Resp BP Pulse Ox
37.1 C 83 20 142/78 99
08/08/25 07:36 08/08/25 07:36 08/08/25 07:36 08/08/25 07:36 08/08/25 07:36
08/06/25 08/07/25 08/08/25
11:59 11:59 11:59
Actual Weight 60.498 kg 59.9 kg
08/08/25 04:37
08/08/25 04:37
PT 13.5 Sec (11.4-14.6) 08/06/25 16:52
INR 1.00 08/06/25 16:52
APTT 29.5 Sec (23.4-35.0) 08/06/25 16:52
Triglycerides 164 mg/dl (10-149) H 08/07/25 07:04
LDL Cholesterol, Calc 104 mg/dl 08/07/25 07:04
VLDL Cholesterol, Calc 32 mg/dl (0-30) H 08/07/25 07:04
HDL Cholesterol 43 mg/dl 08/07/25 07:04
LAB Results
08/06/25 08/06/25 08/07/25
16:52 21:11 00:02
Troponin I 0.019 < 0.012 D < 0.012
08/07/25
02:55
Troponin I Cancelled
Physical Exam
Constitutional: No acute distress and Comfortable
EENT: Anicteric and Moist mucous membranes
Cardiovascular: Rhythm & rate is regular, Pedal edema is absent, JVD pressure is normal, S1S2 is normal and Murmur/rub/gallop absent
Respiratory: Respiratory effort normal, Lungs clear to auscul., Wheeze Absent, Crackles Absent and Rhonchi Absent
GI: Soft, Distention absent, Flat, Non tender and Normal bowel sounds
Neuro/Psych: AO x 3
Other: Cath Site (Right radial access site is C/D/I.)
Data Reviewed
-
Date of Service: August 08, 2025
Medical Decision Making: Reviewed Test Results, Independent Historian Assessment and Test Interpretation
EKG: Tracing Personally Visualized and interpreted and Report Reviewed by me
Echo: Report Reviewed by me
X-Ray/CT/US/MRI/NUC/PET: Image Personally Visualized and interpreted and Report Reviewed by me
Medical Tests (PFT, Pathology etc): Image Personally Visualized and interpreted and Report Reviewed by me
Labs: Labs Reviewed by me
Old Records: Reviewed
[2025-08-08] MEDS: PLAVIX 75 MG PO (09:09)
[2025-08-08] MEDS: COREG 3.125 MG PO (09:10)
[2025-08-08] MEDS: LOW STRENGTH ASPIRIN 81 MG PO (09:10)
[2025-08-08] MEDS: DIOVAN 160 MG PO (09:10)
[2025-08-08] MEDS: ORETIC 12.5 MG PO (09:11)
[2025-08-08] MEDS: PROTONIX 40 MG PO (09:11)
[2025-08-08] MEDS: NOVOLOG FLEXPEN-LOW RESISTANCE SC (09:11)
[2025-08-08 09:41] VITALS: BP 129/83
[2025-08-08 10:41] LABS: ACT-LR - POC > 397 Seconds (116-155)
[2025-08-08 10:41] LABS: ACT-LR - POC > 397 Seconds (116-155)
[2025-08-08 10:46] VITALS: BP 139/83
[2025-08-08 13:03] LABS: Glucose - Point of Care 243 mg/dl (70-99)
[2025-08-08] MEDS: NOVOLOG FLEXPEN-LOW RESISTANCE 2 UNITS SC (13:05)
--- NOTE | 2025-08-08 14:31 | PTCARENOTE ---
Pt up walking around unit without problem. Pt seen by Drs. Hauser and Anuj. telemetry and IV device removed. Discharge instructions reviewed with pt and his daughter who speaks fluent [place]awk regarding medications and their possible side
effects, wound care, activity and driving restrictions, reporting cares and concerns and follow up appt's. Very good understanding demonstrated. Pt also given reports from all procedures to take to his new Buyer Agent. Pt escorted out via
wheelchair and discharged to home.
== END 2025-08-08 14:34 | disposition home or self-care (01) | DRG 322 ==
LOC: IVU 08:12
PROVIDERS: Emergency Medicine; Internal Medicine Cardiovascular Disease; Registered Nurse; ADMITTING PHYSICIAN Hospitalist; ATTENDING PHYSICIAN Hospitalist; EMERGENCY PHYSICIAN Emergency Medicine; OTHER PHYSICIAN Internal Medicine Cardiovascular Disease
PROC: 027034Z Dilation of Coronary Artery, One Artery with Drug-eluting Intraluminal Device, Percutaneous Approach (ICD-10-PCS; 2025-08-07)
PROC: B240ZZ3 Ultrasonography of Single Coronary Artery, Intravascular (ICD-10-PCS; 2025-08-07)
PROC: B2111ZZ Fluoroscopy of Multiple Coronary Arteries using Low Osmolar Contrast (ICD-10-PCS; 2025-08-07)
PROC: 02703ZZ Dilation of Coronary Artery, One Artery, Percutaneous Approach (ICD-10-PCS; 2025-08-07)
PROC: 4A023N7 Measurement of Cardiac Sampling and Pressure, Left Heart, Percutaneous Approach (ICD-10-PCS; 2025-08-07)
DX: I24.9 Acute ischemic heart disease, unspecified (principal); E11.9 Type 2 diabetes mellitus without complications; I10 Essential (primary) hypertension; E78.00 Pure hypercholesterolemia, unspecified; I25.110 Atherosclerotic heart disease of native coronary artery with unstable angina pectoris; Z79.899 Other long term (current) drug therapy; Z79.84 Long term (current) use of oral hypoglycemic drugs
CPT/HCPCS: 80048; 80053; 80061; 82962; 83036; 84484; 85025; 85027; 85347; 85610; 85730; 92921; 92978; 93005; 93306; 93458; 99152; 99153; 99284; C1725; C1753; C1769; C1874; C1894; C9600; Q9967